=== PATIENT | female | born 1990 | race African-American/Black ===

== ENCOUNTER → 2017-06-24 | Outpatient (CLI) | payer OTHER | END | disposition home or self-care (01) | LOC: LABWHC1 15:04 | PROVIDERS: ATTEND Obstetrics & Gynecology | DX: Z34.80 Encounter for supervision of other normal pregnancy, unspecified trimester (principal); Z3A.00 Weeks of gestation of pregnancy not specified | CPT/HCPCS: 36415; 84702 ==

== ENCOUNTER 2017-09-24 23:50 | Emergency (ER) | payer OTHER ==
[2017-09-24 23:59] VITALS: RESP 18; TEMP 97
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
[2017-09-25 02:37] VITALS: BP 121/71; PULSE 78
== END 2017-09-25 02:37 | disposition home or self-care (01) ==
LOC: EC 23:50
DX: S39.011A Strain of muscle, fascia and tendon of abdomen, initial encounter (principal); Z3A.20 20 weeks gestation of pregnancy; Z88.0 Allergy status to penicillin; Y09 Assault by unspecified means; Y92.009 Unspecified place in unspecified non-institutional (private) residence as the place of occurrence of the external cause
CPT/HCPCS: 76805; 99284

== ENCOUNTER 2017-11-29 10:27 | Emergency (ER) | payer OTHER ==
[2017-11-29 11:35] LABS: Appearance,Urine Clear (Clear); Bacteria,Urine Rare /hpf; Bilirubin,Urine Negative (Negative); Blood,Urine Negative (Negative); Color,Urine Yellow; Glucose,Urine (UA) Negative (Negative); Ketones,Urine Negative (Negative); Leukocyte Esterase,Urine Trace (Negative); Mucus,Urine Few /hpf; Nitrite,Urine Negative (Negative); PH, Urine 6.5 (5.0-8.0); Protein,Urine Negative (Negative); RBC,Urine <1 /hpf (0-5); Specific Gravity,Urine 1.013 (1.001-1.035); Squamous Epithelial Cell,Urine 5 /hpf (0-4); Urobilinogen,Urine <2.0 mg/dL (<2.0); WBC,Urine 1 /hpf (0-5)
--- NOTE | 2017-11-29 12:11 | ED ---
General Adult HPI - General Chief complaint: Fall Stated complaint: Fall-29 wks Time Seen by Provider: 11/29/17 10:39 Source: patient, RN notes reviewed, old records reviewed Mode of arrival: ambulatory Limitations: no limitations - History of Present Illness Initial comments: This is a 26-year-old female the ER for evaluation. Patient's ER status post fall, tripping mechanical fall last night around 1 AM. States that she is complaining of left-sided rib pain mild shortness of breath with a deep breath, denies abdominal pain, no vaginal bleeding or discharge occasional cramping. Patient states she has felt her baby kick normally. Denies any her head no loss of consciousness, no other injury - Related Data Home Medications Medication Instructions Recorded Confirmed Pnv No.95/Ferrous Fum/Folic AC 1 each PO DAILY 09/24/17 11/29/17 [ Multivitamin Tablet] Allergies Allergy/AdvReac Type Severity Reaction Status Date / Time Penicillins Allergy Rash/Hives Verified 11/29/17 10:33 Review of Systems ROS Statement: Those systems with pertinent positive or pertinent negative responses have been documented in the HPI. ROS Other: All systems not noted in ROS Statement are negative. Past Medical History Past Medical History: No Reported History History of Any Multi-Drug Resistant Organisms: None Reported Past Surgical History: Orthopedic Surgery Additional Past Surgical History / Comment(s): left arm surgery Past Anesthesia/Blood Transfusion Reactions: No Reported Reaction Past Psychological History: Anxiety, Depression Smoking Status: Former smoker Past Alcohol Use History: None Reported Past Drug Use History: None Reported - Past Family History Mother Family Medical History: Diabetes Mellitus General Exam Limitations: no limitations General appearance: alert, in no apparent distress Head exam: Present: atraumatic, normocephalic, normal inspection Eye exam: Present: normal appearance, PERRL, EOMI. Absent: scleral icterus, conjunctival injection, periorbital swelling ENT exam: Present: normal exam, mucous membranes moist Neck exam: Present: normal inspection. Absent: tenderness, meningismus, lymphadenopathy Respiratory exam: Present: normal lung sounds bilaterally. Absent: respiratory distress, wheezes, rales, rhonchi, stridor Cardiovascular Exam: Present: regular rate, normal rhythm, normal heart sounds. Absent: systolic murmur, diastolic murmur, rubs, gallop, clicks GI/Abdominal exam: Present: soft, normal bowel sounds. Absent: distended, tenderness, guarding, rebound, rigid Extremities exam: Present: normal inspection, full ROM, normal capillary refill. Absent: tenderness, pedal edema, joint swelling, calf tenderness Back exam: Present: normal inspection Neurological exam: Present: alert, oriented X3, CN II-XII intact Psychiatric exam: Present: normal affect, normal mood Skin exam: Present: warm, dry, intact, normal color. Absent: rash Course Vital Signs 11/29/17 10:28 Temperature 97.9 F Pulse Rate 79 Respiratory 18 Rate Blood Pressure 129/84 O2 Sat by Pulse 99 Oximetry - Reevaluation(s) Reevaluation #1: 11/29/17 12:12 Patient is in no acute distress, stable for transfer to L&D for stress test and stress test Medical Decision Making - Medical Decision Making 27 female the ER status post mechanical trip and fall, no abdominal pain no bleeding or discharge, no headache or loss of consciousness. X-ray negative for fracture. Patient be transferred for evaluation by L&D - Lab Data Lab Results 11/29/17 Range/Units 11:08 Urine Color Yellow Urine Appearance Clear (Clear) Urine pH 6.5 (5.0-8.0) Ur Specific [place] 1.013 (1.001-1.035) Urine Protein Negative (Negative) Urine Glucose (UA) Negative (Negative) Urine Ketones Negative (Negative) Urine Blood Negative (Negative) Urine Nitrite Negative (Negative) Urine Bilirubin Negative (Negative) Urine Urobilinogen <2.0 (<2.0) mg/dL Ur Leukocyte Esterase Trace H (Negative) Urine RBC <1 (0-5) /hpf Urine WBC 1 (0-5) /hpf Ur Squamous Epith Cells 5 H (0-4) /hpf Urine Bacteria Rare H (None) /hpf Urine Mucus Few H (None) /hpf - Radiology Data Radiology results: report reviewed (X-ray negative for fracture or pneumothorax) , image reviewed Disposition Clinical Impression: Fall, Contusion of rib on left side, Disposition: HOME SELF-CARE Condition: Good Instructions: Rib Contusion (ED) Is patient prescribed a controlled substance at d/c from ED?: No Referrals: None,Stated [Primary Care Provider] - 1-2 days
--- NOTE | 2017-11-29 12:41 | XR ---
EXAMINATION TYPE: XR ribs LT w pa chest xray DATE OF EXAM: 11/29/2017 COMPARISON: NONE HISTORY: Pain TECHNIQUE: Single view of the chest 2 views of the ribs are submitted. FINDINGS: The lungs are clear. No Evidence for pneumothorax. No evidence for focal contusion. Medi astinal structures are midline. Evaluation of the ribs fails to demonstrate evidence for displaced r ib fracture or secondary sign of rib fracture. IMPRESSION: Negative study
[2017-11-29 13:24] VITALS: BP 165/74; PULSE 92; RESP 16; TEMP 98.4
== END 2017-11-29 13:33 | disposition home or self-care (01) ==
LOC: EC 10:27
DX: O9A.213 Injury, poisoning and certain other consequences of external causes complicating pregnancy, third trimester (principal); S20.212A Contusion of left front wall of thorax, initial encounter; O99.89 Other specified diseases and conditions complicating pregnancy, childbirth and the puerperium; R06.02 Shortness of breath; Z3A.29 29 weeks gestation of pregnancy; Z87.891 Personal history of nicotine dependence; Z88.0 Allergy status to penicillin; W10.9XXA Fall (on) (from) unspecified stairs and steps, initial encounter; Y92.009 Unspecified place in unspecified non-institutional (private) residence as the place of occurrence of the external cause
CPT/HCPCS: 81001; 87086; 99284

== ENCOUNTER 2017-11-29 13:36 | Outpatient (CLI) | payer OTHER ==
[2017-11-29 14:07] VITALS: BP 128/75; PULSE 79; RESP 18; TEMP 98.3
--- NOTE | 2017-11-29 15:02 | US ---
EXAMINATION TYPE: US OB >= 14 wk fetus DATE OF EXAM: 11/29/2017 COMPARISON: None CLINICAL HISTORY: Placenta and fluid volume TECHNIQUE: Transabdominal (TA) GESTATIONAL AGE / DATING Physician Established: (28 weeks/2 days) EDC: 02/19/2018 Dates by LMP: LMP unknown Dates by First Scan: (28 weeks/4 days) EDC: 02/17/2018 Dates by Current Scan: (27 weeks/6 days) EDC: 02/22/2018 Beta HCG (if available): Not available at this time SURVEY IUP: Single PLACENTA: Anterior PREVIA: No Previa ROXI: 10.2 cm Normal CERVICAL LENGTH (transabdominal: norm > 3.0cm): 3.7 cm BIOMETRY PRESENTATION: Vertex LIE: Longitudinal BPD: 7.1 cm 28 weeks / 4 days HC: 25.6 cm 27 weeks / 5 days AC: 23.8 cm 28 weeks / 1 days FL: 5.4 cm 28 weeks / 3 days ESTIMATED WEIGHT IN GRAMS: 1188 grams ESTIMATED WEIGHT IN LBS/OZ: 2 lbs. 10 oz. WEIGHT PERCENTAGE BASED ON ESTABLISHED DATES: 33.3% HC/AC: 1.08 1.02-1.22 FL/AC: 22.54 20.00-24.00 HEART RATE: 143 bpm RHYTHM: Normal IMPRESSION: Single viable intrauterine as discussed above.
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
== END 2017-11-29 14:42 | disposition home or self-care (01) ==
LOC: FBPOP 13:36
PROVIDERS: ATTEND Obstetrics & Gynecology
DX: O9A.213 Injury, poisoning and certain other consequences of external causes complicating pregnancy, third trimester (principal); O26.893 Other specified pregnancy related conditions, third trimester; W10.8XXA Fall (on) (from) other stairs and steps, initial encounter; Z3A.28 28 weeks gestation of pregnancy
CPT/HCPCS: 59025; 76805; G0463; 99213

== ENCOUNTER 2018-01-16 20:46 | Inpatient (IN) | payer OTHER ==
[2018-01-16 21:58] LABS: Basophils % (A) 0 %; Eosinophils # (A) 0.2 k/uL (0-0.7); Eosinophils % (A) 2 %; HCT 27.4 % (34.0-46.0); HGB 8.9 gm/dL (11.4-16.0); Hypochromasia Moderate; Lymphocytes # (A) 1.2 k/uL (1.0-4.8); Lymphocytes % (A) 13 %; MCH 25.3 pg (25.0-35.0); MCHC 32.4 g/dL (31.0-37.0); MCV 78.3 fL (80.0-100.0); Mean Platelet Volume 8.5; Microcytosis Slight; Monocytes # (A) 0.3 k/uL (0-1.0); Monocytes % (A) 3 %; Neutrophils # (A) 7.4 k/uL (1.3-7.7); Neutrophils % (A) 80 %; Platelet Count 272 k/uL (150-450); Poikilocytosis Slight; RDW 15.9 % (11.5-15.5); WBC 9.2 k/uL (3.8-10.6)
[2018-01-16] MEDS: CLINDAMYCIN 600 MG in DEXTROSE 5% IN WATER 50 ML IVPB SCH ×2 (22:02)
[2018-01-16] MEDS: LACTATED RINGERS 1,000 ML IV SCH (22:03)
[2018-01-16] MEDS: BETAMET ACET-BETAMETH SOD PHOS 6 MG/ML VIAL IM SCH (22:13)
[2018-01-16 22:20] VITALS: BMI 22.6
[2018-01-17] MEDS ORDERED: BUPIVACAINE (PF) 0.25% 30 ML VIAL ONE (03:47)
[2018-01-17] MEDS ORDERED: SODIUM CHLORIDE 0.9% 100 ML BAG ONE (03:47)
[2018-01-17] MEDS ORDERED: fentaNYL (PF) 50 MCG/ML 5 ML AMP ONE (03:47)
[2018-01-17] MEDS: LACTATED RINGERS 1,000 ML IV SCH ×2 (03:48→23:12)
[2018-01-17] MEDS ORDERED: ROPIVACAINE 100 MG, fentaNYL (PF) 200 MCG in SODIUM CHLORIDE 0.9% 76 ML EPIDURAL ONE (04:08)
[2018-01-17] MEDS: CLINDAMYCIN 600 MG in DEXTROSE 5% IN WATER 50 ML IVPB SCH ×4 (06:07→21:14)
[2018-01-17] MEDS ORDERED: diphenhydrAMINE 25 MG CAP PO PRN (08:57)
[2018-01-17] MEDS ORDERED: SIMETHICONE 80 MG CHEWABLE PO PRN (08:57)
[2018-01-17] MEDS ORDERED: HYDROCORTISONE 2.5% RECTAL CREAM 30 GM TUBE RECTAL PRN (08:57)
[2018-01-17] MEDS ORDERED: BENZOCAINE/MENTHOL SPRAY 1 GM/SPRAY AEROSOL TOPICAL PRN (08:57)
[2018-01-17] MEDS ORDERED: WITCH HAZEL 1 EACH MED..PAD TOPICAL PRN (08:57)
[2018-01-17] MEDS ORDERED: diphenhydrAMINE 50 MG CAP PO PRN (08:57)
[2018-01-17] MEDS ORDERED: ZOLPIDEM 5 MG TAB PO PRN (08:57)
[2018-01-17] MEDS ORDERED: LANOLIN CREAM 5 GM TUBE TOPICAL PRN (08:57)
[2018-01-17] MEDS ORDERED: diphenhydrAMINE 50 MG/ML 1 ML VIAL IVP PRN ×2 (08:57)
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
--- NOTE | 2018-01-17 09:03 | P.PROBDLV ---
Vaginal Delivery Note - . Vaginal Delivery Note: Patient progressed to complete and pushing with spontaneous vaginal delivery of a viable male over intact perineum. Following delivery of the head anterior posterior shoulders were easily delivered with out any traction. Mouth nares were then bulb suctioned and baby was placed on mother's abdomen where the umbilical cord was clamped and cut in usual fashion. Baby was delivered from left occiput transverse position. Once baby was delivered baby was placed mother's abdomen where the umbilical cord was allowed to pulsate for approximately 30-40 seconds prior to clamping and cutting. Nursery personnel was set present to assume care. scores were 8 and 9 at one and 5 minutes respectively and the weight was 5 lbs. 10 oz. Placenta appeared to have a velamentous cord insertion and was palpably . As the placenta didn't feel low in the uterus I did assist manually delivering the placenta it appears that all fragments were present and there was no evidence of further membranes in the uterus either. Once this was accomplished both mother and baby appear stable. Baby will go to special care nursery due to being 35 weeks gestation.
[2018-01-17] MEDS: IBUPROFEN 600 MG TAB PO PRN (19:45)
[2018-01-17] MEDS: SENNOSIDES-DOCUSATE SODIUM 1 EACH TAB PO SCH ×2 (21:16→23:15)
[2018-01-17] MEDS: BETAMET ACET-BETAMETH SOD PHOS 6 MG/ML VIAL IM SCH (23:13)
[2018-01-17] MEDS: ACETAMINOPHEN TAB 325 MG TAB PO PRN (23:14)
[2018-01-18] MEDS: CLINDAMYCIN 600 MG in DEXTROSE 5% IN WATER 50 ML IVPB SCH ×2 (00:08)
[2018-01-18] MEDS: SENNOSIDES-DOCUSATE SODIUM 1 EACH TAB PO SCH (08:36)
[2018-01-18] MEDS: ACETAMINOPHEN TAB 325 MG TAB PO PRN (08:36)
--- NOTE | 2018-01-18 10:15 | P.PNOBGVD ---
Subjective - Subjective Principal diagnosis: day 1 Interval history: Overall doing well. Ambulating, voiding, tolerating her diet. Baby is in special care nursery. Patient reports: Reports appetite normal, Reports voiding normally, Reports pain well controlled, Reports ambulating normally : in NICU Objective - Latest Vital Signs Latest vital signs: Vital Signs Temp Pulse Resp BP Pulse Ox 01/18/18 08:00 98.4 F 74 18 124/86 01/18/18 00:00 98.4 F 80 18 134/87 01/17/18 15:30 98.5 F 61 16 122/72 99 01/17/18 11:02 71 16 146/83 01/17/18 10:32 56 L 16 129/82 - Exam Lungs: bilateral: normal Chest: Normal S1, Normal S2 Extremities: Present: normal Abdomen: Present: normal appearance, soft Uterus: Present: normal, firm
[2018-01-18] MEDS: IBUPROFEN 600 MG TAB PO PRN (20:21)
[2018-01-19] MEDS: SENNOSIDES-DOCUSATE SODIUM 1 EACH TAB PO SCH ×3 (01:15→20:58)
--- NOTE | 2018-01-19 06:57 | P.DS ---
Providers Date of admission: 01/16/18 21:18 Expected date of discharge: 01/19/18 Attending physician: Josias Nogueira Primary care physician: Stated None Hospital Course: Patient is seen and evaluated day 2. She is ambulating, voiding, and she is tolerating her diet. She voices no complaints. Vital signs are stable and afebrile. Heart regular, lungs clear, extremities without pain. Abdomen is soft, uterus is firm, lochia is reported to be light. Assessment day 2. Plan discharged home follow up with me in 6 weeks. Prescription for Motrin has been forwarded to her pharmacy and all the questions are answered for her at this time. She is stable for discharge this time. Patient Condition at Discharge: Good Plan - Discharge Summary New Discharge Prescriptions: New Ibuprofen [Motrin] 600 mg PO Q6HR PRN #30 tab PRN Reason: Pain Discharge Medication List Ibuprofen [Motrin] 600 mg PO Q6HR PRN #30 tab 01/18/18 [Rx] Follow up Appointment(s)/Referral(s): Josias Nogueira DO [Doctor of Osteopathic Medicine] - 6 Weeks Activity/Diet/Wound Care/Special Instructions: Pelvic rest, no heavy lifting, limit stairs and driving. If she has any high temperatures, heavy bleeding, or severe pain call my office Discharge Disposition: HOME SELF-CARE
[2018-01-19 09:38] VITALS: TEMP 97.8
[2018-01-19] MEDS: IBUPROFEN 600 MG TAB PO PRN ×2 (13:48→21:26)
[2018-01-19 15:37] VITALS: BP 130/82; PULSE 80; RESP 17
== END 2018-01-19 23:19 | disposition home or self-care (01) | DRG 775 ==
LOC: FBPOP 20:46 → 4FBP 21:18
PROVIDERS: ADMIT Obstetrics & Gynecology; ATTEND Obstetrics & Gynecology
PROC: 10E0XZZ Delivery of Products of Conception, External Approach (ICD-10-PCS; principal; 2018-01-17)
PROC: 3E0R3NZ Introduction of Analgesics, Hypnotics, Sedatives into Spinal Canal, Percutaneous Approach (ICD-10-PCS; 2018-01-17)
PROC: 00HU33Z Insertion of Infusion Device into Spinal Canal, Percutaneous Approach (ICD-10-PCS; 2018-01-17)
DX: O42.013 Preterm premature rupture of membranes, onset of labor within 24 hours of rupture, third trimester (principal); Z37.0 Single live birth; Z3A.35 35 weeks gestation of pregnancy; Z88.0 Allergy status to penicillin
CPT/HCPCS: 59025; 84112; 85025; 88307; 99213